=== PATIENT | male | born 1940 | race Two or more races ===

== ENCOUNTER 2017-03-02 13:34 | Emergency (ER) | payer MEDICARE ==
[2017-03-02] MEDS ORDERED: IOPAMIDOL 300 (61%) 100 ML VIAL IV ONE (13:35)
[2017-03-02 14:10] LABS: PH,URINE 6.5 (5.0-8.0); SPECIFIC GRAVITY 1.015 (1.001-1.030); URINE BILIRUBIN NEGATIVE (NEGATIVE); URINE BLOOD TRACE (NEGATIVE); URINE GLUCOSE (UA) 3+ (NEGATIVE); URINE LEUKOCYTE ESTERASE NEGATIVE (NEGATIVE); URINE NITRITE NEGATIVE (NEGATIVE); URINE PROTEIN 1+ (NEGATIVE); URINE UROBILINOGEN NORMAL (0-1 mg/dl)
[2017-03-02 14:11] LABS: URINE APPEARANCE CLEAR; URINE COLOR YELLOW
[2017-03-02 14:19] LABS: URINE BACTERIA FEW; URINE EPITHELIAL CELLS 0-1 /hpf; URINE WBC NEG /hpf
[2017-03-02 14:47] LABS: ABSOLUTE NEUTROPHIL COUNT 5.1 K/mm3 (1.8-7.7); BASO % 0.5 % (0.2-1.0); EOS # 0.2 (0.0-0.5); EOS % 2.3 % (0.9-2.9); HEMATOCRIT 41.3 % (32.0-52.0); HEMOGLOBIN 13.6 gm/l (14.0-18.0); IMM NEUT% 0.2 % (0-1); LYMPH # 2.2 (1.0-4.8); LYMPH % 27.7 % (15-45); MEAN CELL VOLUME 85.5 fl (80.0-94.0); MEAN CORPUSCULAR HEMOGLOBIN 28.2 pg (27.0-31.0); MEAN CORPUSCULAR HGB CONC 32.9 g/dl (33.0-37.0); MONO # 0.5 (0.0-0.8); MONO % 6.7 % (4-12); NEUT % 62.6 % (43-75); PLATELET COUNT 183 K/mm3 (130-400); RED CELL DISTRIBUTION WIDTH 13.8 % (11.5-14.5)
[2017-03-02 15:09] LABS: ALB/GLOB RATIO 0.9 (>1.0); ALBUMIN 3.6 gm/dL (3.5-5.7)
--- NOTE | 2017-03-02 16:44 | CT ---
Name: ANN-MARIE BUSTAMANTE Exam: CT abdomen pelvis with contrast Comparison: None History: Vomiting and abdominal pain Procedure: Helical CT using multidetector technique was applied to the abdomen and pelvis during intravenous administration of 100 cc Isovue-300. No oral contrast was given per ordering physician. An automated dose reduction technique was used to minimize patient radiation dose. Findings: CT abdomen (contrast enhanced): There is a granuloma within left lung base. Heart is nonenlarged. There is no pericardial effusion. Liver, gallbladder, bile ducts, pancreas, spleen, adrenal glands, IVC and portal vein are within normal limits. Bilateral 3.7 cm and less renal cysts are present. There is minimal atherosclerosis of the abdominal aorta and its branches. Stomach, small bowel and colon are normal. There is no free air, free fluid or suspicious adenopathy. Multilevel degenerative disease of the spine is present. CT pelvis (contrast enhanced): Bladder is under distended. Prostate mildly prominent. Seminal vesicles are normal. Small bowel and colon are normal. A normal appendix is thought to be seen as well. Vascular calcification is present. There is no free air, free fluid or suspicious adenopathy. Impression: 1. No current evidence for bowel obstruction or perforation 2. Bilateral renal cysts 3. Atherosclerosis 4. Multilevel degenerative disease of the spine 5. Prior granulomatous infection Note: The above report was uploaded to [facility]'s electronic medical records system at 1640 hours.
== END 2017-03-02 17:48 | disposition home or self-care (01) ==
LOC: ED 13:34
DX: R11.2 Nausea with vomiting, unspecified (principal); M54.5 Low back pain; R03.0 Elevated blood-pressure reading, without diagnosis of hypertension; E11.65 Type 2 diabetes mellitus with hyperglycemia; Z79.84 Long term (current) use of oral hypoglycemic drugs
CPT/HCPCS: 83690; 85025; 80053; 84484; 81001; 74177; 99284; 93005 ×2; 99283; Q9967